=== PATIENT | female | born 1935 | race Caucasian/White ===

== ENCOUNTER 2016-10-02 18:03 | Emergency (ER) | payer MEDICARE, BC ==
[2016-10-02 18:12] VITALS: BP 112/92
[2016-10-02] MEDS ORDERED: Sodium Chloride 0.9% 10 ML Syringe FLUSH PRN (18:42)
[2016-10-02] MEDS ORDERED: HYDROmorphone 0.5 MG/0.5 ML Syringe IVPUSH ONE (18:42)
[2016-10-02] MEDS ORDERED: Sodium Chloride 0.9% 1,000 ML IV SCH (18:45)
--- NOTE | 2016-10-02 20:06 | EDM.PDOC ---
ED HPI GI/ABDOMINAL - General Chief Complaint: Gastrointestinal Problem Stated Complaint: [facility] Time Seen by Provider: 10/02/16 18:28 Source of Information: Reports: Patient, Family, RN notes reviewed - History of Present Illness INITIAL COMMENTS - FREE TEXT/NARRATIVE: 81 year old female comes in with dyspnea, generalized weakness, dizziness, diarrhea, swelling of legs. She has has hx of diabetes, CAD, CHF found to be anemic recently with hgb of 6.6. According to family was transfused 2 units PRBC's about 8 to 10 days ago. Had labs at clinic drawn Thursday. Called yesterday while in [place], told she had CHF, was told to go to ED. Was eval at [place] [facility], consideration given for admission due to CHF, anemia but allowed to go home. Family does not know what the hgb was yesterday, was told it was low but OK. Today no chest or abd pain. Has been having brown stools. Was scheduled for out patient colonoscopy for later this month. she started on iron last evening and now having diarrhea, frequent very loose to watery. Nausea, no vomiting. - Related Data Allergies/ADRs: Allergies Allergy/AdvReac Type Severity Reaction Status Date / Time diltiazem HCl [From Cardizem] Allergy Rash Verified 01/31/16 12:32 lisinopril AdvReac Cough Verified 01/31/16 12:32 Home Meds: Home Meds Omeprazole 40 mg PO DAILY 09/03/14 [History] Pravastatin [Pravachol] 20 mg PO BEDTIME 09/03/14 [History] amLODIPine [Norvasc] 2.5 mg PO DAILY 09/03/14 [History] Insulin Detemir [Levemir Flextouch] 20 unit SQ BEDTIME 10/29/14 [History] Sennosides/Docusate Sodium [Stool Softener] 2 tab PO BEDTIME 10/29/14 [History] Furosemide [Lasix] 40 mg PO BEDTIME 01/31/16 [History] Metoprolol Tartrate [Lopressor] 100 mg PO BID 01/31/16 [History] Warfarin [Coumadin] 5 mg PO ASDIRECTED 01/31/16 [History] Aspirin [Ecotrin] 81 mg PO DAILY 10/02/16 [History] Ferrous Sulfate 325 mg PO BID 10/02/16 [History] Furosemide [Lasix] 80 mg PO DAILY 10/02/16 [History] Isosorbide Mononitrate [Imdur] 60 mg PO DAILY 10/02/16 [History] Potassium Chloride 10 meq PO DAILY 10/02/16 [History] Past Medical History HEENT History: Reports: Cataract Cardiovascular History: Reports: High cholesterol, Hypertension 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: Endocrine/Metabolic History: Reports: Diabetes, type II - Past Surgical History Cardiovascular Surgical History: Reports: None Social & Family History - Tobacco Use Smoking Status *Q: Never Smoker Years of Tobacco use: 30 Used Tobacco, but Quit: Yes Month Tobacco Last Used: 06/1999 Second Hand Smoke Exposure: No - Caffeine Use Caffeine Use: Reports: Coffee - Alcohol Use Days Per Week of Alcohol Use: 0 - Recreational Drug Use Recreational Drug Use: No - Living Situation & Occupation Living situation: Reports: Occupation: retired ED ROS GENERAL - Review of Systems Review Of Systems: See Below Constitutional: Denies: fever, chills, diaphoresis HEENT: Denies: Sinus problem, Throat pain Respiratory: Reports: Shortness of Breath. Denies: Cough Cardiovascular: Reports: Lightheadedness. Denies: Chest pain Endocrine: Reports: fatigue GI/Abdominal: Reports: Diarrhea (since last evening), Nausea. Denies: Abdominal pain, Hematochezia, Melena, Vomiting Musculoskeletal: Reports: back pain (mid back, chronic), muscle pain Skin: Reports: pallor Neurological: Reports: Dizziness, Difficulty Walking, Weakness. Denies: Trouble Speaking ED EXAM, GI/ABD - Physical Exam Exam: See Below General Appearance: alert, moderate distress Eyes: bilateral: normal appearance Throat/Mouth: Normal inspection, Normal oropharynx Head: atraumatic. No: facial swelling Neck: supple, full range of motion Respiratory/Chest: respiratory distress, rales (bilat) Cardiovascular: tachycardia GI/Abdominal: soft, non tender. No: guarding, rebound Rectal (Female) Exam: Normal rectal tone, Heme + stool (brown stool, heme pos) Back Exam: No: CVA tenderness (L), CVA tenderness (R) Extremities: pedal edema (severe bilat) Neurological: alert, no motor/sensory deficits Skin Exam: Pallor EKG INTERPRETATION EKG Date: 10/02/16 Rhythm: a-fib Rate (beats/min): 110 [place]: RAD-right axis deviation QRS: other (low voltage) ST-T: other (mild flattening of t waves lateral and ant. leads) Course - Vital Signs Last Recorded V/S: Last Vital Signs Temp 99.5 F 10/02/16 18:10 Pulse 102 H 10/02/16 18:10 Resp 22 H 10/02/16 18:10 BP 112/92 H 10/02/16 18:10 Pulse Ox 100 10/02/16 18:10 - Orders/Labs/Meds Orders: Active Orders 24 hr Category Date Time Status EKG 12 Lead [EKG Documentation Completion] [RC] STAT Care 10/02/16 18:41 Active Peripheral IV Care [RC] . DIRECTED Care 10/02/16 18:43 Active Chest 1V Frontal [CR] Stat Exams 10/02/16 18:41 Taken Hemoccult [OCCULT BLOOD DIAGNOSTIC] [OP] Stat Lab 10/02/16 19:12 Ordered TYPE AND SCREEN [BBK] Stat Lab 10/02/16 18:56 Ordered Sodium Chloride 0.9% [Normal Saline] 1,000 ml Med 10/02/16 18:45 Active IV ASDIRECTED Sodium Chloride 0.9% [Saline Flush] Med 10/02/16 18:42 Active 10 ml FLUSH ASDIRECTED PRN Peripheral IV Insertion Adult [OM.PC] Stat Oth 10/02/16 18:42 Ordered Medication Orders Sodium Chloride (Normal Saline) 1,000 mls @ 75 mls/hr IV ASDIRECTED ORQUIDEA Last Admin: 10/02/16 18:50 Dose: 75 mls/hr Sodium Chloride (Saline Flush) 10 ml FLUSH ASDIRECTED PRN PRN Reason: Keep Vein Open Last Admin: 10/02/16 18:50 Dose: 10 ml Labs: Laboratory Tests 10/02/16 10/02/16 10/02/16 Range/Units 18:14 18:14 18:14 WBC 9.80 (3.98-10.04) K/mm3 RBC 3.89 L (3.98-5.22) M/mm3 Hgb 7.2 L* (11.2-15.7) gm/L Hct 25.8 L (34.1-44.9) % MCV 66.3 L (79.4-94.8) fl MCH 18.5 L (25.6-32.2) pg MCHC 27.9 L (32.2-35.5) g/dl RDW Std Deviation 52.4 H (36.4-46.3) fL Plt Count 193 (182-369) K/mm3 Neut % (Auto) 82.9 H (34.0-71.1) % Lymph % (Auto) 7.3 L (19.3-51.7) % [place] % (Auto) 9.2 (4.7-12.5) % Eos % (Auto) 0.1 L (0.7-5.8) Baso % (Auto) 0.2 (0.1-1.2) % Neut # (Auto) 8.12 H (1.56-6.13) K/mm3 Lymph # (Auto) 0.72 L (1.18-3.74) K/mm3 [place] # (Auto) 0.90 H (0.24-0.36) K/mm3 Eos # (Auto) 0.01 L (0.04-0.36) K/mm3 Baso # (Auto) 0.02 (0.01-0.08) K/mm3 Manual Slide Review Abnormal smear PT (8.0-13.0) SECONDS INR Sodium 138 (136-145) mEq/L Potassium 3.6 (3.5-5.1) mEq/L Chloride 103 (98-107) mEq/L Carbon Dioxide 24 (21-32) mEq/L Anion Gap 14.6 (5-15) BUN 45 H (7-18) mg/dL Creatinine 2.2 H (0.55-1.02) mg/dL Est Cr Clr Drug Dosing 16.31 mL/min Estimated GFR (MDRD) 21 (>60) mL/min BUN/Creatinine Ratio 20.5 H (14-18) Glucose 190 H (83-115) mg/dL Lactic Acid (0.4-2.0) mmol/L Calcium 8.3 L (8.5-10.1) mg/dL Total Bilirubin 4.1 H (0.2-1.0) mg/dL AST 48 H (15-37) U/L ALT 7 L (14-59) U/L Alkaline Phosphatase 91 (46-116) U/L C-Reactive Protein 7.1 H* (<1.0) mg/dL B-Natriuretic Peptide (0-100) pg/mL Total Protein 6.3 L (6.4-8.2) g/dl Albumin 2.7 L (3.4-5.0) g/dl Globulin 3.6 gm/dL Albumin/Globulin Ratio 0.8 L (1-2) 10/02/16 10/02/16 10/02/16 Range/Units 18:14 18:14 19:04 WBC (3.98-10.04) K/mm3 RBC (3.98-5.22) M/mm3 Hgb (11.2-15.7) gm/L Hct (34.1-44.9) % MCV (79.4-94.8) fl MCH (25.6-32.2) pg MCHC (32.2-35.5) g/dl RDW Std Deviation (36.4-46.3) fL Plt Count (182-369) K/mm3 Neut % (Auto) (34.0-71.1) % Lymph % (Auto) (19.3-51.7) % [place] % (Auto) (4.7-12.5) % Eos % (Auto) (0.7-5.8) Baso % (Auto) (0.1-1.2) % Neut # (Auto) (1.56-6.13) K/mm3 Lymph # (Auto) (1.18-3.74) K/mm3 [place] # (Auto) (0.24-0.36) K/mm3 Eos # (Auto) (0.04-0.36) K/mm3 Baso # (Auto) (0.01-0.08) K/mm3 Manual Slide Review PT 35.5 H (8.0-13.0) SECONDS INR 3.03 Sodium (136-145) mEq/L Potassium (3.5-5.1) mEq/L Chloride (98-107) mEq/L Carbon Dioxide (21-32) mEq/L Anion Gap (5-15) BUN (7-18) mg/dL Creatinine (0.55-1.02) mg/dL Est Cr Clr Drug Dosing mL/min Estimated GFR (MDRD) (>60) mL/min BUN/Creatinine Ratio (14-18) Glucose (83-115) mg/dL Lactic Acid 2.3 H (0.4-2.0) mmol/L Calcium (8.5-10.1) mg/dL Total Bilirubin (0.2-1.0) mg/dL AST (15-37) U/L ALT (14-59) U/L Alkaline Phosphatase (46-116) U/L C-Reactive Protein (<1.0) mg/dL B-Natriuretic Peptide 2000 H (0-100) pg/mL Total Protein (6.4-8.2) g/dl Albumin (3.4-5.0) g/dl Globulin gm/dL Albumin/Globulin Ratio (1-2) Meds: Medications Generic Name Dose Route Start Last Admin Trade Name Freq PRN Reason Stop Dose Admin Sodium Chloride 1,000 mls @ 75 mls/hr 10/02/16 18:45 10/02/16 18:50 Normal Saline IV 75 mls/hr ASDIRECTED ORQUIDEA Administration Sodium Chloride 10 ml 10/02/16 18:42 10/02/16 18:50 Saline Flush FLUSH 10 ml ASDIRECTED PRN Administration Keep Vein Open Discontinued Medications Generic Name Dose Route Start Last Admin Trade Name Freq PRN Reason Stop Dose Admin Hydromorphone HCl 0.5 mg 10/02/16 18:42 10/02/16 18:50 Dilaudid IVPUSH 10/02/16 18:43 0.5 mg ONETIME ONE Administration - Re-Assessments/Exams Free Text/Narrative Re-Assessment/Exam: 10/02/16 19:45 Hgb came back at 7.2, other labs as documented. She has fairly severe CHF, CXR show cardiomegally, pul. stu., she needs blood, needs treatment of her CHF before she will be stable for colonoscopy. She is code level II. She has an antibiody. Will transfer to [facility] ground ambulance. Dr Antonio, Hospitalist accepting Phys. Departure - Departure Time of Disposition: 19:45 Disposition: DC/Tfer to Acute Hospital 02 Condition: serious Clinical Impression: Renal insufficiency GI bleed Qualifiers: GI bleed type/associated pathology: unspecified gastrointestinal hemorrhage type Qualified Code(s): K92.2 - Gastrointestinal hemorrhage, unspecified Anemia Qualifiers: Anemia type: unspecified type Qualified Code(s): D64.9 - Anemia, unspecified Atrial fibrillation Qualifiers: Atrial fibrillation type: chronic Qualified Code(s): I48.2 - Chronic atrial fibrillation Congestive heart failure Qualifiers: Congestive heart failure type: combined Congestive heart failure chronicity: acute on chronic Qualified Code(s): I50.43 - Acute on chronic combined systolic (congestive) and diastolic (congestive) heart failure Forms: ED Department Discharge - My Orders Last 24 Hours: My Active Orders 10/02/16 18:41 EKG 12 Lead [EKG Documentation Completion] [RC] STAT Chest 1V Frontal [CR] Stat 10/02/16 18:42 Sodium Chloride 0.9% [Saline Flush] 10 ml FLUSH ASDIRECTED PRN Peripheral IV Insertion Adult [OM.PC] Stat 10/02/16 18:43 Peripheral IV Care [RC] . DIRECTED 10/02/16 18:45 Sodium Chloride 0.9% [Normal Saline] 1,000 ml IV ASDIRECTED 10/02/16 18:56 TYPE AND SCREEN [BBK] Stat 10/02/16 19:12 Hemoccult [OCCULT BLOOD DIAGNOSTIC] [OP] Stat - Assessment/Plan Last 24 Hours: My Active Orders 10/02/16 18:41 EKG 12 Lead [EKG Documentation Completion] [RC] STAT Chest 1V Frontal [CR] Stat 10/02/16 18:42 Sodium Chloride 0.9% [Saline Flush] 10 ml FLUSH ASDIRECTED PRN Peripheral IV Insertion Adult [OM.PC] Stat 10/02/16 18:43 Peripheral IV Care [RC] . DIRECTED 10/02/16 18:45 Sodium Chloride 0.9% [Normal Saline] 1,000 ml IV ASDIRECTED 10/02/16 18:56 TYPE AND SCREEN [BBK] Stat 10/02/16 19:12 Hemoccult [OCCULT BLOOD DIAGNOSTIC] [OP] Stat
--- NOTE | 2016-10-03 10:54 | CR ---
Chest: Portable view of the chest was obtained. Comparison: Previous chest x-ray of 01/31/16. Heart is mildly enlarged. Increased density within the left base is seen. Findings presumably represent combination of atelectasis and small pleural effusion. Minimal pleural effusion suggested within the right lateral costophrenic angle. Pulmonary vessels are minimally congested. Bony structures are osteopenic. Impression: 1. Increased density within left base presumably due to combination of atelectasis and small pleural effusion. Minimal right sided pleural effusion is present. 2. Heart size slightly enlarged with possible mild pulmonary vascular congestion. Diagnostic code #3
== END 2016-10-02 20:05 ==
LOC: JD.ED 18:03
DX: K92.2 Gastrointestinal hemorrhage, unspecified (principal); N28.9 Disorder of kidney and ureter, unspecified; D64.9 Anemia, unspecified; I48.2 Chronic atrial fibrillation; I11.0 Hypertensive heart disease with heart failure; I50.43 Acute on chronic combined systolic (congestive) and diastolic (congestive) heart failure; E78.00 Pure hypercholesterolemia, unspecified; E11.9 Type 2 diabetes mellitus without complications; Z87.891 Personal history of nicotine dependence; Z79.82 Long term (current) use of aspirin; Z79.899 Other long term (current) drug therapy; Z79.4 Long term (current) use of insulin; Z88.8 Allergy status to other drugs, medicaments and biological substances
CPT/HCPCS: 36415; 71010; 80053; 83605; 83880; 85025; 85610; 86140; 93005; 96361; 96374; 99285; J1170; J7040; J7050; 86850; 86870; 86900; 86901

== ENCOUNTER 2016-10-14 18:05 | Emergency (ER) | payer MEDICARE, BC ==
[2016-10-14] MEDS ORDERED: Metoclopramide 10 MG/2 ML SDV IVPUSH ONE (18:43)
[2016-10-14] MEDS ORDERED: HYDROmorphone 0.5 MG/0.5 ML Syringe IVPUSH ONE ×2 (18:43→20:37)
[2016-10-14] MEDS ORDERED: Sodium Chloride 0.9% 1,000 ML IV ONE (18:43)
--- NOTE | 2016-10-14 18:46 | EDM.PDOC ---
<Andrew Montalvo [place] - Last Filed: 10/14/16 19:48> ED HPI GENERAL MEDICAL PROBLEM - General Chief Complaint: Abdominal Pain Stated Complaint: POST SURGERY ELEVATED WBC Time Seen by Provider: 10/14/16 18:35 Source of Information: Reports: Patient, Family ( daughters. ) History Limitations: Reports: Altered Mental Status ( mildy confused. Daughters provide most of the history.) - History of Present Illness INITIAL COMMENTS - FREE TEXT/NARRATIVE: 81-year-old female sent across from [facility] eye doctor [place]. Roro underwent laparotomy with removal of 12 inches of her colon to to a cancerous tumor one week ago yesterday which was October 06. It appears she was discharged on prednisone I don't have her med list at present. Also on 2 inhalers and I suspect she developed some problems with pulmonary function after the surgery. She is failing to thrive at home with inability to eat or drink. She had emesis this morning of bilious material. Also have been working and are soft or at least formed. She requires help walking. Lab work done at the clinic revealed a elevated white count at 34.8. Hemoglobin was 11.5 hematocrit was 36.7 MCV is a bit low at 74 suggesting iron deficiency. Platelet count was 369,000 at the clinic. Giant platelets were appreciated on these exam. Her cells spherocytes and teardrop cells were also noted as well as a few smudge cells. Blood sugar was 89 sodium 137 potassium 4.7 chloride 101 bicarbonate 27 anion gap was 14. BUN is elevated at 48 creatinine elevated at 2.37 note she does have some pre- existing renal insufficiency. Calcium was 8.5 bilirubin 0.8 alk phosphatase 78 ALT was less than 6 this hard to believe AST was 11. Total protein of 5.9 albumin fraction 2.3 pro time was elevated at 34.0 INR 3.25. At present the pain is having a lot of abdominal discomfort primarily cramping. She is short of breath on minimal exertion. Has absolutely no appetite. Current pain is rated as a 7/10 in her abdomen. Onset: Gradual (Has not done well postoperatively.) Onset Date: 10/06/16 (Surgery was performed on October 06. She was discharged on October 10) Duration: Day(s): Location: Reports: Generalized (Generalized weakness) Quality: Reports: Other Severity: Moderate (Abdominal pain is mostly sharp and stabbing and cramping.) Improves with: Reports: None Worsens with: Reports: None Context: Denies: Activity, Exercise, Lifting, Sick Contact, Trauma, Other Associated Symptoms: Reports: Confusion (Not coughing hard enough to bring up any phlegm), Cough, Loss of Appetite, Malaise, Nausea/Vomiting, Shortness of Breath, Weakness (Has kept down only a little bit of fluids today.). Denies: No Other Symptoms, Chest Pain, cough w sputum, Diaphoresis, Fever/Chills, Headaches, Rash, Seizure Abdomen Pain Score (Numeric/FACES): 10 - Related Data Allergies Allergy/AdvReac Type Severity Reaction Status Date / Time diltiazem HCl [From Cardizem] Allergy Rash Verified 10/14/16 18:17 lisinopril AdvReac Cough Verified 10/14/16 18:17 Home Meds: Home Meds Omeprazole 40 mg PO DAILY 09/03/14 [History] Pravastatin [Pravachol] 20 mg PO BEDTIME 09/03/14 [History] amLODIPine [Norvasc] 2.5 mg PO DAILY 09/03/14 [History] Insulin Detemir [Levemir Flextouch] 20 unit SQ BEDTIME 10/29/14 [History] Sennosides/Docusate Sodium [Stool Softener] 2 tab PO BEDTIME 10/29/14 [History] Furosemide [Lasix] 40 mg PO BEDTIME 01/31/16 [History] Metoprolol Tartrate [Lopressor] 100 mg PO BID 01/31/16 [History] Warfarin [Coumadin] 5 mg PO ASDIRECTED 01/31/16 [History] Aspirin [Ecotrin] 81 mg PO DAILY 10/02/16 [History] Ferrous Sulfate 325 mg PO BID 10/02/16 [History] Furosemide [Lasix] 80 mg PO DAILY 10/02/16 [History] Isosorbide Mononitrate [Imdur] 60 mg PO DAILY 10/02/16 [History] Potassium Chloride 10 meq PO DAILY 10/02/16 [History] Albuterol/Ipratropium [Take Home: Albuterol/Ipratropium 4 GM Inhaler] 1 packet INH Q4HR PRN 10/14/16 [History] Budesonide [Pulmicort Flexhaler] 2 inh PO BID 10/14/16 [History] Hydrocodone/Acetaminophen [[place] 5-325 Tablet] 1 each PO Q6HR PRN 10/14/16 [ History] Past Medical History HEENT History: Reports: Cataract Cardiovascular History: Reports: Afib (Chronic atrial fibrillation and she is on Coumadin for this.), High Cholesterol, Hypertension Gastrointestinal History: Reports: GERD, Other (See Below) (Recent discovery of cancer of the colon with 1 foot of colon resected October 06. 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: Endocrine/Metabolic History: Reports: Diabetes, Type II - Past Surgical History GI Surgical History: Reports: Other (See Below) Other GI Surgeries/Procedures: partial colon removal Social & Family History - Tobacco Use Smoking Status *Q: Never Smoker Years of Tobacco use: 30 Used Tobacco, but Quit: Yes Month Tobacco Last Used: 06/1999 Second Hand Smoke Exposure: No - Caffeine Use Caffeine Use: Reports: Coffee - Alcohol Use Days Per Week of Alcohol Use: 0 - Recreational Drug Use Recreational Drug Use: No - Living Situation & Occupation Living situation: Reports: Occupation: Retired ED ROS GENERAL - Review of Systems Review Of Systems: See Below Constitutional: Reports: Malaise, Weakness, Fatigue, Decreased Appetite, Weight Loss. Denies: Fever, Chills HEENT: Reports: Other (Dry mouth and tongue.) Respiratory: Reports: Shortness of Breath. Denies: Wheezing, Pleuritic Chest Pain (On minimal exertion), Cough, Sputum, Hemoptysis Cardiovascular: Reports: Blood Pressure Problem, Dyspnea on Exertion, Edema ( Chronically in her lower chimney days.), Lightheadedness, Palpitations ( Chronically). Denies: Chest Pain, Claudication, Orthopnea (Hypertension) Endocrine: Reports: Fatigue, High Glucose ( palpitations at times that she is in atrial fib.) GI/Abdominal: Reports: Abdominal Pain (Postoperatively generalized cramping abdominal pain), Anorexia, Decreased Appetite, Nausea (Vomited bilious material x1 this morning comes and goes), Vomiting. Denies: Distension, Hematemesis, Hematochezia, Melena, Other : Reports: Incontinence (Urge and stress component.) Musculoskeletal: Reports: Back Pain, Joint Pain (Knees and hips) Skin: Reports: Pallor, Bruising (Bruises extremely easy because of being on Coumadin. Worse since hospitalization with multiple venipunctures and IVs) Neurological: Reports: Confusion, Difficulty Walking, Weakness. Denies: Change in Speech Psychiatric: Reports: Confusion Hematologic/Lymphatic: Reports: Easy Bleeding, Easy Bruising Immunologic: Reports: No Symptoms ED EXAM, GI/ABD - Physical Exam Exam: See Below Exam Limited By: Altered Mental Status (She has transient confusion and also history had to be provided by her daughters. She was mixed upon which the hip was with mixed up on her stay she had surgery more last mixed up on what time of the day it is.) General Appearance: Lethargic Eyes: Bilateral: Normal Appearance (Nonicteric) Throat/Mouth: Other (Tongue is very dry and coated.) Head: Atraumatic, Normocephalic Neck: Normal Inspection, Supple, Non-Tender, Full Range of Motion. No: Carotid Bruit, Lymphadenopathy (R), Thyromegaly Respiratory/Chest: Normal Breath Sounds (Anterior chest.), Decreased Breath Sounds (Decreased air entry to the posterior 30% of both lung neff. Suspicious for pleural effusions. She can sit up very well and therefore cannot percuss her chest well.). No: Rhonchi, Wheezing Cardiovascular: No Gallop, No Murmur, No Rub, Irregularly Irregular (Atrial fibrillation with rates of 120s.) GI/Abdominal: Normal Bowel Sounds, No Mass, Tenderness (Throughout the abdomen.) , Other (Surgical wound appears to be healing adequately. She has been multiple abdominal wall ecchymoses from Lovenox. Her also to square lesions which are probably cardiac patches on her abdominal wall that of left a dense adhesive irritation. She is tenderness on palpation throughout the abdomen with slight drainage on her clothing from mid laparotomy wound..) Back Exam: Other (Mild kyphosis thoracic spine) Extremities: Pedal Edema (Has 4+ pitting edema both lower extremities to the knees.) Neurological: CN II-XII Intact, No Motor/Sensory Deficits. No: Oriented, Normal Cognition, Normal Reflexes Psychiatric: Anxious Skin Exam: Dry, Intact, Cool, Pallor EKG INTERPRETATION EKG Date: 10/14/16 Time: 18:50 Rhythm: a-fib [place]: normal P-wave: absent QRS: other (Decreased voltage limb leads.) ST-T: other (Diffuse T-wave flattening in leads 123 aVR aVL and aVF also in V4 to V6.) QT: prolonged (QT interval is mildly prolonged) Course - Vital Signs Last Recorded V/S: Last Vital Signs Temp 36.4 C 10/14/16 18:12 Pulse 118 H 10/14/16 21:40 Resp 18 10/14/16 18:12 BP 125/87 10/14/16 21:40 Pulse Ox 93 L 10/14/16 18:12 - Orders/Labs/Meds Orders: Active Orders 24 hr Category Date Time Status EKG Documentation Completion [RC] STAT Care 10/14/16 18:44 Active Oxygen Therapy [RC] ASDIRECTED Care 10/14/16 18:45 Active Chest 1V Frontal [CR] Stat Exams 10/14/16 18:44 Taken KUB [Abdomen 1V Flat] [CR] Stat Exams 10/14/16 19:55 Taken CULTURE BLOOD [BC] Stat Lab 10/14/16 19:23 Received CULTURE BLOOD [BC] Stat Lab 10/14/16 19:32 Received Sodium Chloride 0.9% [Normal Saline] 1,000 ml Med 10/14/16 18:43 Active IV ONETIME Blood Culture x2 Reflex Set [OM.PC] Stat Oth 10/14/16 18:45 Ordered Medication Orders Sodium Chloride (Normal Saline) 1,000 mls @ 150 mls/hr IV ONETIME ONE Stop: 10/15/16 01:22 Last Admin: 10/14/16 19:17 Dose: 150 mls/hr Labs: Laboratory Tests 10/14/16 10/14/16 10/14/16 Range/Units 18:43 18:43 18:44 WBC 23.64 H (3.98-10.04) K/mm3 RBC 5.48 H (3.98-5.22) M/mm3 Hgb 12.2 (11.2-15.7) gm/L Hct 40.0 (34.1-44.9) % MCV 73.0 L (79.4-94.8) fl MCH 22.3 L (25.6-32.2) pg MCHC 30.5 L (32.2-35.5) g/dl RDW Std Deviation 78.3 H (36.4-46.3) fL Plt Count 434 H (182-369) K/mm3 MPV 9.9 (9.4-12.3) fl Neutrophils % (Manual) 97 H (40-60) % Band Neutrophils % 0 (0-10) % Lymphocytes % (Manual) 0 L (20-40) % Atypical Lymphs % 0 % Monocytes % (Manual) 3 (2-10) % Eosinophils % (Manual) 0 L (0.7-5.8) % Basophils % (Manual) 0 L (0.1-1.2) Platelet Estimate Adequate Plt Morphology Comment Normal Poikilocytosis 3+ marked Anisocytosis 2+ moderate Microcytosis 3+ marked Stomatocytes 2+ moderate Magdalene Cells 2+ moderate RBC Morph Comment Not Reportable PT 81.1 H* (8.0-13.0) SECONDS INR 6.60 H* Sodium 136 (136-145) mEq/L Potassium 3.6 (3.5-5.1) mEq/L Chloride 100 (98-107) mEq/L Carbon Dioxide 27 (21-32) mEq/L Anion Gap 12.6 (5-15) BUN 48 H (7-18) mg/dL Creatinine 2.3 H (0.55-1.02) mg/dL Est Cr Clr Drug Dosing 14.91 mL/min Estimated GFR (MDRD) 20 (>60) mL/min BUN/Creatinine Ratio 20.9 H (14-18) Glucose 95 (83-115) mg/dL Calcium 8.5 (8.5-10.1) mg/dL Magnesium 2.2 (1.8-2.4) mg/dl Total Bilirubin 0.9 (0.2-1.0) mg/dL AST 10 L (15-37) U/L ALT 10 L (14-59) U/L Alkaline Phosphatase 90 (46-116) U/L CK-MB (CK-2) < 0.5 (0-3.6) ng/ml Troponin I 0.022 (0.00-0.056) ng/mL C-Reactive Protein 14.4 H* (<1.0) mg/dL B-Natriuretic Peptide (0-100) pg/mL Total Protein 6.6 (6.4-8.2) g/dl Albumin 2.5 L (3.4-5.0) g/dl Globulin 4.1 gm/dL Albumin/Globulin Ratio 0.6 L (1-2) Lipase (73-393) U/L Urine Color (Yellow) Urine Appearance (Clear) Urine pH (5.0-8.0) Ur Specific [place] (1.005-1.030) Urine Protein (Negative) Urine Glucose (UA) (Negative) Urine Ketones (Negative) Urine Occult Blood (Negative) Urine Nitrite (Negative) Urine Bilirubin (Negative) Urine Urobilinogen (0.2-1.0) Ur Leukocyte Esterase (Negative) Urine RBC (0-5) /hpf Urine WBC (0-5) /hpf Ur Epithelial Cells (0-5) /hpf Urine Bacteria (FEW) /hpf Urine Mucus (FEW) /hpf 10/14/16 10/14/16 10/14/16 Range/Units 18:57 19:10 19:36 WBC (3.98-10.04) K/mm3 RBC (3.98-5.22) M/mm3 Hgb (11.2-15.7) gm/L Hct (34.1-44.9) % MCV (79.4-94.8) fl MCH (25.6-32.2) pg MCHC (32.2-35.5) g/dl RDW Std Deviation (36.4-46.3) fL Plt Count (182-369) K/mm3 MPV (9.4-12.3) fl Neutrophils % (Manual) (40-60) % Band Neutrophils % (0-10) % Lymphocytes % (Manual) (20-40) % Atypical Lymphs % % Monocytes % (Manual) (2-10) % Eosinophils % (Manual) (0.7-5.8) % Basophils % (Manual) (0.1-1.2) Platelet Estimate Plt Morphology Comment Poikilocytosis Anisocytosis Microcytosis Stomatocytes Madgalene Cells RBC Morph Comment PT (8.0-13.0) SECONDS INR Sodium (136-145) mEq/L Potassium (3.5-5.1) mEq/L Chloride (98-107) mEq/L Carbon Dioxide (21-32) mEq/L Anion Gap (5-15) BUN (7-18) mg/dL Creatinine (0.55-1.02) mg/dL Est Cr Clr Drug Dosing mL/min Estimated GFR (MDRD) (>60) mL/min BUN/Creatinine Ratio (14-18) Glucose (83-115) mg/dL Calcium (8.5-10.1) mg/dL Magnesium (1.8-2.4) mg/dl Total Bilirubin (0.2-1.0) mg/dL AST (15-37) U/L ALT (14-59) U/L Alkaline Phosphatase (46-116) U/L CK-MB (CK-2) (0-3.6) ng/ml Troponin I (0.00-0.056) ng/mL C-Reactive Protein (<1.0) mg/dL B-Natriuretic Peptide 1332 H (0-100) pg/mL Total Protein (6.4-8.2) g/dl Albumin (3.4-5.0) g/dl Globulin gm/dL Albumin/Globulin Ratio (1-2) Lipase 41 L (73-393) U/L Urine Color Yellow (Yellow) Urine Appearance Clear (Clear) Urine pH 5.5 (5.0-8.0) Ur Specific [place] 1.010 (1.005-1.030) Urine Protein Negative (Negative) Urine Glucose (UA) Negative (Negative) Urine Ketones Negative (Negative) Urine Occult Blood Negative (Negative) Urine Nitrite Negative (Negative) Urine Bilirubin Negative (Negative) Urine Urobilinogen 0.2 (0.2-1.0) Ur Leukocyte Esterase Negative (Negative) Urine RBC Not seen (0-5) /hpf Urine WBC 0-5 (0-5) /hpf Ur Epithelial Cells 0-5 (0-5) /hpf Urine Bacteria Rare (FEW) /hpf Urine Mucus Not seen (FEW) /hpf Meds: Medications Generic Name Dose Route Start Last Admin Trade Name Freq PRN Reason Stop Dose Admin Sodium Chloride 1,000 mls @ 150 mls/hr 10/14/16 18:43 10/14/16 19:17 Normal Saline IV 10/15/16 01:22 150 mls/hr ONETIME ONE Administration Discontinued Medications Generic Name Dose Route Start Last Admin Trade Name Freq PRN Reason Stop Dose Admin Diltiazem HCl 10 mg 10/14/16 19:22 10/14/16 19:46 Diltiazem IVPUSH 10/14/16 19:23 Not Given ONETIME ONE Hydromorphone HCl 0.5 mg 10/14/16 18:43 10/14/16 19:18 Dilaudid IVPUSH 10/14/16 18:44 0.5 mg ONETIME ONE Administration Hydromorphone HCl 0.5 mg 10/14/16 20:37 10/14/16 20:40 Dilaudid IVPUSH 10/14/16 20:38 0.5 mg ONETIME ONE Administration Diltiazem HCl 125 mg/ Sodium 125 mls @ 5 mls/hr 10/14/16 19:30 Chloride IV ASDIRECTED ORQUIDEA 5 MG/HR Metoclopramide HCl 5 mg 10/14/16 18:43 10/14/16 19:20 Reglan IVPUSH 10/14/16 18:44 5 mg ONETIME ONE Administration Metoprolol Tartrate 5 mg 10/14/16 19:47 10/14/16 20:02 Lopressor IVPUSH 10/14/16 19:48 5 mg ONETIME ONE Administration Metoprolol Tartrate 5 mg 10/14/16 20:58 10/14/16 21:40 Lopressor IVPUSH 10/14/16 20:59 5 mg ONETIME ONE Administration - Radiology Interpretation Free Text/Narrative:: 81-year-old female presents to the ED after being assessed by her primary care provider Dr. Mcgee. Patient underwent laparotomy with removal or resection of 1 foot of her colon due to a cancerous tumor by Dr. Huynh in [place] on October 06. It sounds like she developed some pulmonary troubles while in hospital and ended up on fairly high-dose prednisone as well as 2 inhalers. She is having nausea and vomiting this morning and is not eating much at all since discharge from hospital. She has chronic atrial fibrillation and rate was found to be quite elevated at 225 per minute in the clinic. Her white count was found to be markedly elevated at 34.5 but the differential is poorly defined. She's also is slightly hyper anticoagulated with an INR of 3.25 today. She'll come in chronically because of the total fibrillation. On my examination I believe she is in heart failure with bilateral small pleural effusions posteriorly. The abdomen is tender everywhere. Her kidney function is poor with renal insufficiency creatinine was 2.37 today and therefore she would not be amenable to IV contrast. At present with her nausea and vomiting she would not be a minimal to oral contrast IV. The T. of the abdomen will be performed without contrast and see if we can document to see any obvious problems or abscesses. Her elevated white count seems to be the be a bit more excessive than one would expect from just prednisone alone. Our she is afebrile on my initial assessment. She looks ill however. She is obviously volume depleted. She will have a single chest x-ray CT of the abdomen and pelvis without contrast labs to be repeated IV will be normal saline at 150 mils an hour until we get a handle on her fluid status and renal function. She's asking for something for pain so soon as the IV is established I will give her 0.5 mg of Dilaudid and 5 mg of Reglan for nausea and back pain relief. - Re-Assessments/Exams Free Text/Narrative Re-Assessment/Exam: 10/14/16 19:25 care will be transferred to Dr. Watkins as it is change of shift. Her heart rate remains in the 120s to 130s with atrial fibrillation. BP was 131/68. I was going to give her Cardizem 10 mg IV bolus and then started drip at 5 mg per hour but it is listed as an allergy. There is some question as to whether or not she may develop hives to this medication in the past. This is highly unlikely. We will therefore use metoprolol 5 mg IV given over 5 minutes to provide rate control. Departure - Departure Disposition: DC/Tfer to Acute Hospital 02 Clinical Impression: Supratherapeutic INR, Chronic atrial fibrillation with rapid ventricular response, Abdominal pain of unknown etiology, Nausea & vomiting, Leukocytosis, Chronic kidney failure Congestive heart failure Qualifiers: Congestive heart failure type: combined Congestive heart failure chronicity: acute on chronic Qualified Code(s): I50.43 - Acute on chronic combined systolic (congestive) and diastolic (congestive) heart failure - Discharge Information - My Orders Last 24 Hours: My Active Orders 10/14/16 19:55 KUB [Abdomen 1V Flat] [CR] Stat - Assessment/Plan Last 24 Hours: My Active Orders 10/14/16 19:55 KUB [Abdomen 1V Flat] [CR] Stat <Jason Mcgee - Last Filed: 10/14/16 21:59> Past Medical History Genitourinary History: Reports: Chronic Renal Insuffiency Course - Radiology Interpretation Free Text/Narrative:: Portable chest radiograph reviewed. There appears to be cardiomegaly. There is mild pulmonary vascular congestion and bilateral pleural effusions, consistent with decompensated CHF. No focal infiltrate identified. No pneumothorax. Formal read per the Radiologist pending. KUB appears to demonstrate scattered stool throughout the colon and a nonspecific bowel gas pattern. No air-fluid levels to suggest a small bowel obstruction. Formal read per the Radiologist pending. - Re-Assessments/Exams Free Text/Narrative Re-Assessment/Exam: 10/14/16 20:[address] Montalvo. As above, IV metoprolol be given instead of IV Cardizem due to a possible allergy. The portable chest radiograph appears to demonstrate decompensated CHF, therefore I have ordered the IV fluid to be held. 10/14/16 21:01 The INR has returned supratherapeutic at 6.60. There is no clinically evident bleeding. Current recommendations are to hold one or 2 doses of the Coumadin, with or without oral vitamin K, however, low-dose oral vitamin K he has not been shown to reduce the risk of bleeding, and is therefore not recommended per the [employer]. 10/14/16 21:11 Test results discussed with the patient and her family. The etiology of the patient's abdominal pain, nausea, and vomiting, is unclear. further insight could be gained with a CT scan with oral and IV contrast. She appears to be in mildly decompensated CHF. She is in chronic atrial fibrillation with a rapid ventricular response, and her INR is supratherapeutic. She has leukocytosis, most likely due to the prednisone she was given. I believe the patient needs to be hospitalized, however, since her abdominal pain is likely related to her recent elisha-colectomy, she would need to be transferred back to [facility]. The patient and her family are agreeable. 10/14/16 21:[address] Leblanc, Hospitalist at [facility], at 21:36. He would prefer the patient be transferred to their Emergency Department. Case then discussed with Dr. Hall, Emergency Physician at [facility], at 21:44, who accepts the patient for transfer. Departure - Departure Time of Disposition: 21:50 Condition: fair
[2016-10-14] MEDS ORDERED: Diltiazem 25 MG/5 ML SDV IVPUSH ONE (19:22)
[2016-10-14] MEDS ORDERED: Diltiazem 125 MG in Sodium Chloride 0.9% 100 ML IV SCH (19:30)
[2016-10-14] MEDS ORDERED: Metoprolol Tartrate 5 MG/5 ML SDV IVPUSH ONE ×2 (19:47→20:58)
[2016-10-14] MEDS ORDERED: Metoprolol Tartrate 5 MG/5 ML SDV IVPUSH STA (22:41)
[2016-10-15 01:59] VITALS: BP 136/88
--- NOTE | 2016-10-15 07:05 | CR ---
Chest: Portable view of the chest was obtained. Comparison: Previous chest x-ray of 10/02/16. Blunting of the costophrenic angles are seen presumably due to pleural effusions. Probable bibasilar atelectasis is also present. Pulmonary vessels are minimally congested. Heart is slightly enlarged. Tortuous thoracic aorta is seen. Bony structures are grossly intact. Impression: 1. Possible mild CHF as noted above. Findings remain fairly stable from previous exam. Diagnostic code #3
--- NOTE | 2016-10-15 08:30 | CR ---
Abdomen: Supine view of the abdomen was obtained. Comparison: No previous abdominal x-ray. Vascular calcification is seen. Calcification within the upper right abdomen which is felt compatible with a large gallstone. Bowel gas pattern appears normal. Bony structures are osteopenic. Impression: 1. Findings as described above. Diagnostic code #2
== END 2016-10-14 23:09 ==
LOC: JD.ED 18:05
DX: I13.0 Hypertensive heart and chronic kidney disease with heart failure and stage 1 through stage 4 chronic kidney disease, or unspecified chronic kidney disease (principal); E11.22 Type 2 diabetes mellitus with diabetic chronic kidney disease; N18.9 Chronic kidney disease, unspecified; I50.43 Acute on chronic combined systolic (congestive) and diastolic (congestive) heart failure; I48.2 Chronic atrial fibrillation; R10.9 Unspecified abdominal pain; R11.2 Nausea with vomiting, unspecified; D72.829 Elevated white blood cell count, unspecified; R79.1 Abnormal coagulation profile; K21.9 Gastro-esophageal reflux disease without esophagitis; E78.00 Pure hypercholesterolemia, unspecified; Z87.891 Personal history of nicotine dependence; Z79.4 Long term (current) use of insulin; Z79.82 Long term (current) use of aspirin; Z79.899 Other long term (current) drug therapy; Z88.8 Allergy status to other drugs, medicaments and biological substances
CPT/HCPCS: 36415; 71010; 74000; 80053; 81001; 82553; 83690; 83735; 83880; 84484; 85025; 85610; 86140; 87040; 93005; 96361; 96374; 96375; 96376; 99285; J1170; J2765; J7040; P9612; J3490